=== PATIENT | male | born 1985 | race Caucasian/White ===

== ENCOUNTER 2022-10-22 14:07 | Outpatient (CLI) | payer OTHER, SELFPAY | END 2022-10-22 14:08 | disposition home or self-care (01) | LOC: LONREF 14:08 | PROVIDERS: PCP Family Medicine; Visit Provider Family Medicine | DX: Z13.6 Encounter for screening for cardiovascular disorders (principal) | CPT/HCPCS: 80061 ==

== ENCOUNTER 2024-07-06 08:03 | Outpatient (CLI) | payer OTHER, SELFPAY | END 2024-07-06 08:04 | disposition home or self-care (01) | LOC: LKVREF 08:06 | PROVIDERS: PCP Family Medicine; Visit Provider Family Medicine | DX: Z00.01 Encounter for general adult medical examination with abnormal findings (principal); E78.5 Hyperlipidemia, unspecified | CPT/HCPCS: 80061 ==